=== PATIENT | male | born 1990 | race Caucasian/White ===

== ENCOUNTER 2020-11-13 10:58 | Emergency (ER) | payer OTHER ==
[~2020-11-13] VITALS: Ht 175.3 cm; Wt 79.4 kg
[2020-11-13 11:07] VITALS: BP 149/82
--- NOTE | 2020-11-13 11:15 | NUR ---
PT AMBULATED TO BED 11.
--- NOTE | 2020-11-13 11:16 | NUR ---
30 Y M C/C Continous vomitting emesis and coffee ground over x10 that began last night. pt reports not being able to tolerate food or drink. Reports sharp/stabbing epigastric pain. Radial and pedal pulses 2+. TTP LUQ. SocHx: smokes marijuana allerigie: apple peels PMH: Stomach cancer Surghx: colonoctomy
[2020-11-13] MEDS ORDERED: NACL 0.9% 1,000 ML IV ONE (11:25)
[2020-11-13] MEDS ORDERED: HALOPERIDOL IM 5 MG/ML VIAL IVP ONE (11:25)
[2020-11-13] MEDS ORDERED: diphenhydrAMINE 50 MG/ML VIAL IVP ONE (11:25)
[2020-11-13] MEDS ORDERED: PANTOPRAZOLE 40 MG INJ VIAL IVP ONE (11:30)
--- NOTE | 2020-11-13 11:31 | NUR ---
LAB AT BEDSIDE
[2020-11-13 11:37] LABS: BASOPHILS # (AUTO) 0.1 K/uL (0.00-0.22); BASOPHILS % (AUTO) 0.8 % (0.0-2.0); EOSINOPHILS # (AUTO) 0.1 K/uL (0-0.4); EOSINOPHILS % (AUTO) 0.5 % (0.0-4.0); HEMATOCRIT 45.2 % (36-52); HEMOGLOBIN 15.6 g/dL (12.0-18.0); LYMPHOCYTES # (AUTO) 1.6 K/uL (2.0-11.5); LYMPHOCYTES % (AUTO) 15.2 % (20.5-51.1); MEAN CORPUSCULAR HEMOGLOBIN 32 pg (27-31); MEAN CORPUSCULAR HGB CONC 35 g/dL (33-37); MEAN CORPUSCULAR VOLUME 91.3 fL (80-94); MONOCYTES # (AUTO) 0.7 K/uL (0.8-1.0); MONOCYTES % (AUTO) 7.1 % (1.7-9.3); NEUTROPHILS # (AUTO) 7.8 K/uL (1.8-7.7); NEUTROPHILS % (AUTO) 76.4 % (42.2-75.2); PLATELET COUNT (AUTO) 266 K/uL (140-450); RED BLOOD CELL COUNT(AUTO) 4.95 MIL/uL (4.20-6.10); WHITE BLOOD COUNT (AUTO) 10.3 K/uL (4.8-10.8)
--- NOTE | 2020-11-13 11:44 | NUR ---
EKG AT [facility]
[2020-11-13 11:53] LABS: ALBUMIN 4.8 g/dL (3.4-5.0); BILIRUBIN,DIRECT 0.4 mg/dL (0.0-0.3); TOTAL BILIRUBIN 1.6 mg/dL (0.0-1.0)
--- NOTE | 2020-11-13 12:05 | NUR ---
BED [address] VIA [facility]
[2020-11-13 12:33] LABS: ANION GAP 20.3 (8-16); CARBON DIOXIDE 20.9 mmol/L (21-32); CREATININE 0.9 mg/dL (0.6-1.3); POTASSIUM 3.2 mmol/L (3.5-5.1)
--- NOTE | 2020-11-13 13:12 | NUR ---
IV removed, catheter intact and site benign. Applied folded 4x4 gauze and tape to stop bleeding.
--- NOTE | 2020-11-13 13:13 | NUR ---
Patient does not wish to proceed with medical care recommended by Dr. Ovalle. Patient given information related to possible complications, up to and including , which could occur as a result of leaving hospital at this time. Patient verbalizes understanding of risks involved leaving against medical advice. Patient has signed AMA form.
[2020-11-13] MEDS ORDERED: ONDA4TAB PO (13:16)
== END 2020-11-13 13:13 | disposition left against medical advice (07) ==
LOC: MED 10:58
DX: R10.84 Generalized abdominal pain (principal)
CPT/HCPCS: 36415; 74176; 80048; 80076; 83690; 85025; 93005; 96361; 96374; 96375; 99285; C9113; J1200; J1630; J7030